=== PATIENT | female | born 1960 ===

== ENCOUNTER 2019-01-10 08:22 | Day surgery (SDC) | payer OTHER ==
[~2019-01-10 08:22] MED LIST: Buffered Lidocaine 1% SYRIN* 1 ML/SYRINGE INTRADERM ONE; Lactated Ringers 1000 ML Bag* 1,000 ML IV SCH; ceFAZolin 2 GM PREMIX in ORs 2 GM/50 ML BAG IVPB ONE
[2019-01-10] MEDS ORDERED: Lidocain 1% EPI 1:100,000 * 30 ML MDV ONE ×2 (09:51→10:01)
[2019-01-10] MEDS ORDERED: Midazolam* 1 MG/ML 5 ML VIAL (5 MG) ONE (10:02)
[2019-01-10] MEDS ORDERED: fentaNYL* 50 MCG/ML 2 ML VIAL (100 MCG VIAL) ONE ×2 (10:03→11:12)
[2019-01-10] MEDS ORDERED: Midazolam* 1 MG/ML 2 ML VIAL (2 MG) ONE ×2 (10:34→10:52)
[2019-01-10] MEDS ORDERED: Propofol* 10 MG/ML 20 ML BTL ONE ×4 (10:55→11:47)
[2019-01-10] MEDS ORDERED: Naloxone* 0.4 MG/ML 1 ML VIAL IV PRN (10:56)
[2019-01-10] MEDS ORDERED: KETAMINE HCL* 50 MG/ML 10 ML VIAL ONE (11:17)
[2019-01-10 14:08] VITALS: BP 122/59
[2019-01-10] MEDS ORDERED: Acetaminophen TAB* 325 MG ONE ×2 (14:11→14:13)
== END 2019-01-10 14:26 | disposition home or self-care (01) ==
LOC: OR 08:22
PROVIDERS: ATTEND Plastic Surgery
DX: C44.329 Squamous cell carcinoma of skin of other parts of face (principal); I34.1 Nonrheumatic mitral (valve) prolapse; Z85.828 Personal history of other malignant neoplasm of skin; B27.00 Gammaherpesviral mononucleosis without complication
CPT/HCPCS: 88305; 88329; A9270-GY; J0690; J2250; J2704; J3010